=== PATIENT | female | born 1950 | race Caucasian/White ===

== ENCOUNTER 2019-05-31 22:52 | Inpatient (IN) ==
[2019-05-31] MEDS ORDERED: *HR* Heparin 5,000 UNIT/ML VIAL IVP PRN ×2 (23:36)
[2019-05-31] MEDS ORDERED: *HR* Heparin 5,000 UNIT/ML VIAL IVP ONE (23:36)
[2019-05-31 23:49] LABS: Basophils % 0.8 %; Eosinophils # 0.2 K/mcL (0.0-0.6); Eosinophils % 3.8 %; Hematocrit 42.9 % (35.3-44.9); Hemoglobin 14.6 g/dL (11.5-15.4); Immature Granulocytes % 0.4 % (0-4); Lymphocytes # 1.7 K/mcL (0.6-4.6); Lymphocytes % 32.8 %; Mean Corpuscular Hemoglobin 30.1 pg (28.0-33.3); Mean Corpuscular Volume 88.5 fL (83.0-100.0); Monocytes # 0.5 K/mcL (0.0-1.3); Monocytes % 8.9 %; Neutrophils # 2.8 K/mcL (1.6-8.9); Platelet Count 189 K/mcL (140-400); Red Blood Count 4.85 M/mcL (3.82-4.97); Red Cell Distribution Width 12.5 % (11.5-14.5); Segmented Neutrophils % 53.3 %; White Blood Count 5.3 K/mcL (4.3-11.1)
[2019-06-01 00:07] LABS: BUN/Creatinine Ratio 23 (6-26); Blood Urea Nitrogen 15 mg/dL (8-23); Calcium 9.1 mg/dL (8.6-10.3); Carbon Dioxide 24 mEq/L (23-29); Chloride 107 mEq/L (98-107); Glucose 88 mg/dL (70-105); Osmolality,Calculated 292 (280-300); Potassium 3.9 mEq/L (3.5-5.1); Sodium 141 mEq/L (136-145); eGFR For African Americans > 60 (> 60); eGFR For Non-African Americans > 60 (> 60)
[2019-06-01] MEDS: Heparin 25,000 UNIT/250 ML D5W 25,000 UNIT/250 ML IV.SOLN IVC SCH ×2 (00:18→22:31)
[2019-06-01 00:31] LABS: Heparin anti-factor XA UFH 0.02 IU/mL (0.30-0.70)
[2019-06-01] MEDS ORDERED: Naloxone 0.4 MG/ML INJ IVP PRN (04:57)
[2019-06-01 06:52] LABS: Hematocrit 43.4 % (35.3-44.9); Hemoglobin 14.4 g/dL (11.5-15.4); Mean Corpuscular HGB Conc 33.2 g/dL (31.6-35.5); Mean Corpuscular Hemoglobin 29.5 pg (28.0-33.3); Mean Corpuscular Volume 88.9 fL (83.0-100.0); Mean Platelet Volume 9.8 fL (9.4-12.4); Platelet Count 180 K/mcL (140-400); Red Blood Count 4.88 M/mcL (3.82-4.97); Red Cell Distribution Width 12.7 % (11.5-14.5); White Blood Count 4.8 K/mcL (4.3-11.1)
[2019-06-01 07:03] LABS: BUN/Creatinine Ratio 21 (6-26); Blood Urea Nitrogen 13 mg/dL (8-23); Calcium 8.9 mg/dL (8.6-10.3); Carbon Dioxide 26 mEq/L (23-29); Chloride 107 mEq/L (98-107); Glucose 92 mg/dL (70-105); Osmolality,Calculated 300 (280-300); Potassium 3.9 mEq/L (3.5-5.1); Sodium 145 mEq/L (136-145); eGFR For African Americans > 60 (> 60); eGFR For Non-African Americans > 60 (> 60)
[2019-06-01] MEDS: Budesonide/Formoterol 160/4.5 1 PUFF INH IH SCH ×2 (14:20→20:24)
[2019-06-01] MEDS: Gabapentin 400 MG CAPSULE PO SCH ×2 (15:49→20:18)
[2019-06-01] MEDS ORDERED: DOCUSATE SODIUM PO SCH (21:00)
[2019-06-01] MEDS ORDERED: Budesonide/Formoterol 160/4.5 1 PUFF INH IH SCH (21:00)
[2019-06-02] MEDS: Heparin 25,000 UNIT/250 ML D5W 25,000 UNIT/250 ML IV.SOLN IVC SCH (04:53)
[2019-06-02] MEDS: Budesonide/Formoterol 160/4.5 1 PUFF INH IH SCH ×2 (07:35→19:49)
[2019-06-02] MEDS ORDERED: Nitroglycerin 0.4 MG TAB.SUBL SL SCH (09:00)
[2019-06-02] MEDS ORDERED: Nitroglycerin 0.4 MG TAB.SUBL SL PRN (09:32)
[2019-06-02] MEDS ORDERED: Acetaminophen 325 MG TABLET PO PRN (09:39)
[2019-06-02] MEDS: Aspirin Enteric Coated 81 MG Tablet PO SCH (09:41)
[2019-06-02] MEDS: *HR* Enoxaparin 100 MG/ML SYRINGE SQ SCH ×2 (12:53→20:41)
[2019-06-02] MEDS ORDERED: Warfarin perPT PO PRN (18:00)
[2019-06-02] MEDS ORDERED: *HR* Warfarin 5 MG TABLET PO ONE (18:00)
[2019-06-02] MEDS ORDERED: Gabapentin 400 MG CAPSULE PO SCH (21:00)
[2019-06-03 06:34] LABS: Prothrombin Time 11.8 Seconds (9.4-12.1)
[2019-06-03 06:50] VITALS: BP 116/81
[2019-06-03] MEDS: Budesonide/Formoterol 160/4.5 1 PUFF INH IH SCH (07:42)
[2019-06-03] MEDS: *HR* Enoxaparin 100 MG/ML SYRINGE SQ SCH (07:59)
[2019-06-03] MEDS: Aspirin Enteric Coated 81 MG Tablet PO SCH (07:59)
[2019-06-04 22:34] LABS: FACV Specimen WHOLE BLOOD
[2019-06-05 09:32] LABS: Fac V Leiden R506Q Mut Result NEGATIVE
[2019-06-06 00:24] LABS: APTT (LE Anticoag) >150 sec (32-48); Diluted Russell Viper Venom 52 sec (33-44); LE APTT D Heparin Neutralized 40 sec (32-48); LE Coag Reptilase Time 18.9 sec (<=21.9); LE Dil. Russell Viper Mix 1:1 32 sec (33-44); Thrombin Time >150.0 sec (14.7-19.5)
== END 2019-06-03 09:53 | disposition home or self-care (01) | DRG 301 ==
LOC: 2ANU 22:52 → EMEROOARM 22:52 → SUATTDRO 06-01 00:06 → 2ANU 06-01 01:11
PROVIDERS: ADMIT Family Medicine; ATTEND Internal Medicine